=== PATIENT | male | born 1985 | race Caucasian/White ===

== ENCOUNTER 2019-08-13 00:51 | Emergency (ER) | payer SELFPAY | END 2019-08-13 02:37 | disposition home or self-care (01) | PROVIDERS: Emergency Provider Emergency Medicine ==

== ENCOUNTER 2019-08-13 00:59 | Emergency (ER) | payer OTHER, SELFPAY ==
[2019-08-13 01:15] VITALS: BP 139/86; PULSE 67; RESP 16; TEMP 36.7; O2SAT 100; BMI 19.5
[2019-08-13] MEDS: BUPIVACAINE 0.5% W/ EPI (PF) 30 ML VIAL 5 ML SUBCUT (01:31)
[2019-08-13] MEDS: LIDOCAINE VISCOUS 2% 15 ML SOLUTION PO (01:33)
--- NOTE | 2019-08-13 01:33 | ED_ITS ---
HPI - Dental/Oral General Chief complaint: Dental/Oral Stated complaint: upper left side tooth pain Time Seen by Provider: 08/13/19 01:02 Source: patient Mode of arrival: Ambulatory Limitations: no limitations History of Present Illness HPI Narrative: 33M smoker with long dental history presents with a chief complai nt of a few days of worsening left upper dental pain with some perceived swelling. He denies any bitter taste in his mouth. He denies any injury or trauma. He denies any fever or chills. He has been taking Tylenol and Motrin without any relief. He has no dentist but plans to try to find 1 starting tomorrow. Teeth map: 1. Onset (ago): day(s) Duration: constant Severity: severe Severity scale (1-10): 8 Relieving factors: nothing Exacerbating factors: chewing, cold and heat Context: history of dental caries Treatment prior to arrival: oral analgesic Related Data Previous Rx's Medication Instructions Recorded ketorolac 10 mg PO TID 5 Days #15 tab 08/13/19 penicillin V potassium 500 mg PO QID 7 Days #28 tab 08/13/19 Allergies Allergy/AdvReac Type Severity Reaction Status Date / Time No Known Drug Allergies Allergy Verified 08/13/19 01:19 Review of Systems Constitutional Constitutional: Denies chills, Denies fatigue, Denies fever(s), Denies frequent falls, Denies lethargy and Denies weakness Eyes Eyes: Denies change in vision, Denies eye discharge, Denies irritation and Denies loss of vision ENT Ears, Nose, Mouth, and Throat: Denies change in voice, Reports dental pain, Denies dizziness, Denies neck pain, Denies sore throat and Denies throat swelling Cardiovascular Cardiovascular: Denies chest pain, Denies irregular heart rhythm, Denies lightheadedness, Denies palpitations, Denies dyspnea, Denies dyspnea on exertion and Denies orthopnea Respiratory Respiratory: Denies cough, Denies dyspnea, Denies dyspnea on exertion and Denies wheezing Gastrointestinal Gastrointestinal: Denies abdominal pain, Denies change in bowel habits, Denies diarrhea, Denies nausea and Denies vomiting Genitourinary Genitourinary: Denies hematuria, Denies flank pain, Denies urinary incontinence and Denies urinary urgency Musculoskeletal Musculoskeletal: Denies back pain, Denies muscle weakness, Denies neck pain, Denies numbness and Denies tingling Integumentary/Breasts Skin/Breast: Denies pruritus, Denies erythema, Denies rash and Denies wounds Neurologic Neurologic: Denies behavioral changes, Denies confusion, Denies dizziness, Denies frequent falls, Denies loss of vision, Denies numbness, Denies tingling and Denies weakness Psychiatric Psychiatric: Denies anxiety, Denies behavioral changes, Denies confusion, Denies depression, Denies homicidal ideation and Denies suicidal ideation Endocrine Endocrine: Denies fatigue, Denies flushing and Denies palpitations Hematologic/Lymphatic Hematologic/Lymphatic: Denies easy bruising Allergic/Immunologic Allergic/Immunologic: Denies urticaria, Denies throat swelling and Denies wheezing Patient History Social History (Updated 08/13/19 @ 01:35 by Edgardo Reynolds DO) Smoking Status: Current every day smoker alcohol intake frequency: 0-2 drinks per day Substance Use Type: does not use Exam Narrative Exam Narrative: GEN: AOx3 and in mild distress, rubbing the left side of his face, complaining of pain HEAD: No facial swelling. EYES: Pupils are equal, round, and reactive to light and accommodation. Extraoccular muscles are intact bilaterally. There is no subconjunctival hemorrhage or exudate. ENT: Poor dentition throughout. Eroded teeth with multiple caries. No obvious sign of abscess. TMs without effusion or other sign of infection CHEST: Lungs are clear to auscultation bilaterally and free of wheezes, rales, or rhonchi. Heart rate is regular rhythm, there are no murmurs, clicks, rubs, or gallops. There is no chest wall tenderness. ABD: Abdomen is soft and nontender. There is no guarding or rebound. Bowel sounds are normal in all 4 quadrants. There is no mass or organomegaly. EXT: Full painless ROM of all extremities with no loss of sensation or strength. SKIN: Warm, pink, and dry. No erythema or rash Initial Vital Signs Initial Vital Signs: Vital Signs Temperature 98.0 F 08/13/19 01:15 Pulse Rate 67 08/13/19 01:15 Respiratory Rate 16 08/13/19 01:15 Blood Pressure 139/86 08/13/19 01:15 Pulse Oximetry 100 08/13/19 01:15 Procedures Nerve Block Nerve Block 1: Time out performed: Yes Local Anesthetic: bupivacaine 0.5% and with epi Amount of anesthesia used (mL): 2 Side: left Intraoral Nerve Block: superior alveolar Procedure Successful: Yes Patient Tolerated Procedure: Well Complications: none Course Orders Ordered: Discontinued Medications Bupivacaine HCl/Epinephrine Bitart (Sensorcaine 0.5% W/ Epi (Pf)) 5 ml SUBCUT NOW ONE Stop: 08/13/19 01:14 Last Admin: 08/13/19 01:31 Dose: 5 ml Documented by: MOE Lidocaine HCl (Viscous Lidocaine 2%) 15 ml PO NOW ONE Stop: 08/13/19 01:14 Last Admin: 08/13/19 01:33 Dose: 15 ml Documented by: MOE Vital Signs Vital signs: Vital Signs - 8 hr 08/13/19 01:15 08/13/19 01:38 Temperature 98.0 F Pulse Rate 67 68 Respiratory Rate 16 14 Blood Pressure 139/86 133/82 Pulse Oximetry 100 98 Discharge Plan Departure Patient Disposition: Home Clinical Impression: Pain due to dental caries Discharge Date/Time: 08/13/19 01:39 Instructions: DI for Dental Pain Activity Restrictions/Additional Instructions: *You have been diagnosed with [dental pain due to caries, no obvious evidence of abscess] *What to do: *Take medications as directed: Take the prescription anti-inflammatory (ketorolac) instead of Motrin (ibuprofen, advil) *Follow up with your dentist in 2-3 days, call for an appointment. Let them know you were seen in the Emergency Department and that we ask that you be seen in follow up *Return to ER if you should have any new, worsening or concerning symptoms, such as facial swelling, fever greater than 101 F, or other bothersome symptoms Prescriptions: New ketorolac 10 mg tablet 10 mg PO TID 5 Days Qty: 15 RF: 0 penicillin V potassium 500 mg tablet 500 mg PO QID 7 Days Qty: 28 RF: 0 Referrals: Leon Simeon DMD [Physician] -
[2019-08-13 01:38] VITALS: BP 133/82; PULSE 68; RESP 14; O2SAT 98
== END 2019-08-13 01:39 | disposition home or self-care (01) ==
PROVIDERS: Emergency Provider Emergency Medicine
DX: K02.9 Dental caries, unspecified (principal)
CPT/HCPCS: 64450; 99283

== ENCOUNTER 2020-06-24 13:11 | Emergency (ER) | payer OTHER, SELFPAY ==
[2020-06-24 13:17] VITALS: BP 140/87; PULSE 94; RESP 20; TEMP 36.9; O2SAT 99
--- NOTE | 2020-06-24 14:29 | ED.DENTAL ---
HPI - Dental/Oral General Chief complaint: Dental/Oral Stated complaint: tooth pain //ear ache Time Seen by Provider: 06/24/20 14:03 Source: patient Mode of arrival: Ambulatory Limitations: no limitations History of Present Illness HPI Narrative: Patient is a 34-year-old male who presents with left upper dental pain ongoing for the last 2 days. He actually says he has chronic dental caries and issues but over the last couple days as it had gotten significantly worse. Denies any facial swelling or pain no fever or chills MD Complaint: tooth pain Teeth map: 1. No dental abscess dental romi noted Related Data Previous Rx's Medication Instructions Recorded amoxicillin 500 mg PO BID #14 cap 06/24/20 Allergies Allergy/AdvReac Type Severity Reaction Status Date / Time No Known Drug Allergies Allergy Verified 08/14/19 09:39 Review of Systems Review of Systems Narrative: GENERAL: Denies chills,fever HEENT: See HPI RESPIRATORY: Denies dyspnea, cough, wheezing CARDIOVASCULAR: Denies chest pain, palpitations GASTROINTESTINAL: Denies nausea, vomiting MUSCULOSKELETAL: Denies extremity pain, injury SKIN: No rash, no laceration, no pruritus NEUROLOGIC: Denies weakness, dizziness, headache, numbness 8 point review of systems is negative except for those stated above and HPI Patient History Social History (System 08/14/19 @ 09:39 by Alanis Rodríguez) Smoking Status: Current every day smoker Smoking Status: Current every day smoker alcohol intake frequency: 0-2 drinks per day Substance Use Type: does not use Exam Initial Vital Signs Initial Vital Signs: Vital Signs Temperature 98.4 F 06/24/20 13:17 Pulse Rate 94 H 06/24/20 13:17 Respiratory Rate 20 06/24/20 13:17 Blood Pressure 140/87 06/24/20 13:17 Pulse Oximetry 99 06/24/20 13:17 GENERAL: Well-appearing, well-nourished and in no acute distress. HEENT: See diagram multiple dental caries all over mouth multiple rotting teeth. No dental abscess appreciated no facial swelling pain or erythema CARDIOVASCULAR: peripheral pulses in tact, cap refill <2 sec RESPIRATORY: No respiratory distress, speaks in full sentences without difficulty EXTREMITIES: Normal range of motion, no clubbing or edema. Neurovascularly intact NEUROLOGICAL: Cranial nerves II through XII grossly intact. Normal gait and speech. SKIN: Warm, dry, no petechiae, no rashes or lesions. Course Vital Signs Vital signs: Vital Signs - 8 hr 06/24/20 13:17 Temperature 98.4 F Pulse Rate 94 H Respiratory Rate 20 Blood Pressure 140/87 Pulse Oximetry 99 Discharge Plan Departure Patient Disposition: Home Clinical Impression: Toothache Instructions: DI for Dental Pain Activity Restrictions/Additional Instructions: *You have been diagnosed with dental pain *What to do: It is a medical necessity that he follow up with a dentist *Continue to take medications as directed Amoxicillin 500 mg twice a day for 7 days Ibuprofen 800 mg every 8 hours if needed for [id number] pain *Follow up with your primary care provider in 2-3 days *Return to ER if you should have facial swelling, fever, neck swelling difficulty swallowing or any new, worsening or concerning symptoms Prescriptions: New amoxicillin 500 mg capsule 500 mg PO BID Qty: 14 RF: 0
== END 2020-06-24 14:49 | disposition home or self-care (01) ==
PROVIDERS: Emergency Provider Emergency Medicine
DX: K08.89 Other specified disorders of teeth and supporting structures (principal); K02.9 Dental caries, unspecified
CPT/HCPCS: 99281